=== PATIENT | male | born 1985 | race Caucasian/White ===

== ENCOUNTER 2021-08-04 17:26 | Emergency (ER) | payer MEDICAID, SELFPAY ==
[2021-08-04 17:26] VITALS: BP 129/62; PULSE 70; RESP 22; O2SAT 95
[2021-08-04 17:27] VITALS: BP 127/56; PULSE 90; RESP 16; TEMP 36.2; O2SAT 94; BMI 23.0
[2021-08-04 17:31] VITALS: BP 127/56; PULSE 76; RESP 22; O2SAT 92
--- NOTE | 2021-08-04 17:44 | INFXCTL.NOTE ---
lab called for critical lab result. called cleaner laboratory equipment to report trop 15.5
[2021-08-04 18:00] VITALS: BP 119/71; PULSE 89; RESP 24; O2SAT 95
[2021-08-04 18:14] LABS: Microscopic, Urine URINE MICROSCOPIC (MICROSCOPIC)
[2021-08-04 18:20] LABS: Basophils # 0.3 K/mm3 (0-0.2); Basophils % 2.3 % (0.1-2.0); Eosinophils # 0.3 K/mm3 (0.0-0.4); Eosinophils % 2.1 % (0.1-12.0); Hematocrit 54.3 % (42.0-52.0); Hemoglobin 16.5 g/dL (14.1-18.0); Lymphocytes # 3.4 K/mm3 (0.7-4.5); Lymphocytes % 23.7 % (10-50); Mean Corpuscular HGB Conc 30.4 g/dL (31.8-35.4); Mean Corpuscular Hemoglobin 29.3 pg (27.0-31.2); Mean Corpuscular Volume 96.1 fl (80-94); Mean Platelet Volume 9.7 fl (7.4-10.4); Monocytes # 0.6 K/mm3 (0.1-1.0); Monocytes % 4.1 % (1.7-9.3); Neutrophils # 9.7 K/mm3 (1.8-7.8); Neutrophils % 67.7 % (37.0-80.0); Platelet Count 344 K/mm3 (142-424); Red Blood Count 5.65 M/mm3 (4.60-6.20); Red Cell Distribution Width 13.4 % (11.5-17.5); White Blood Count 14.3 K/mm3 (4.8-10.8)
--- NOTE | 2021-08-04 18:20 | XR_ITS ---
PROCEDURE INFORMATION: Exam: XR Chest Exam date and time: 08/04/2021 6:20 PM Age: 35 years old Clinical indication: Other: Overdose TECHNIQUE: Imaging protocol: XR of the chest. Views: 1 view. COMPARISON: No relevant prior studies available. FINDINGS: Lungs: Unremarkable. No consolidation. Pleural spaces: Unremarkable. No pleural effusion. No pneumothorax. Heart/Mediastinum: Unremarkable. No cardiomegaly. Bones/joints: Unremarkable. IMPRESSION: No acute findings.
[2021-08-04 18:25] LABS: Chloride 100 mmol/L (98-107)
[2021-08-04 18:26] LABS: Potassium 4.4 mmoL/L (3.5-5.1); Sodium 139 mmol/L (136-145)
[2021-08-04 18:26] LABS: Appearance,Urine CLEAR (Clear); Bilirubin,Urine Negative (Negative); Blood, Urine 1+ (Negative); Color,Urine YELLOW (Yellow); Glucose,Urine (UA) 1+ (Negative); Ketones,Urine Negative (Negative); Leukocyte Esterase,Urine Negative (Negative); Nitrate,Urine Negative (Negative); PH,Urine 5.5 (5.0-8.5); Protein,Urine 2+ (Negative); Specific Gravity, Urine >= 1.030 (1.005-1.030); Urobilinogen,Urine 0.2 EU/dl (0.2)
[2021-08-04 18:29] LABS: Alanine Aminotransferase 129 U/L (12-78); Albumin Level 5.1 g/dl (3.5-5.0); Albumin/Globulin Ratio 1.8 (1.1-1.8); Alkaline Phosphatase 124 U/L (38-126); Anion Gap 35.4 mEq/L (5-15); Aspartate Amino Transferase 183 U/L (17-59); Bilirubin,Total 0.3 mg/dl (0.2-1.3); Blood Urea Nitrogen 10 mg/dl (9-20); Creatinine Clearance Estimated 98 mL/min (50-200); Estimated Glomerular Filt Rate 76 ml/min (>60); GFR (African American) 92 ML/MIN (>60); Globulin 2.8 g/dL (1.3-3.2); Glucose 248 mg/dl (74-100); Total Protein,Serum 7.9 g/dl (6.3-8.2)
[2021-08-04 18:30] LABS: Acetaminophen < 10 ug/ml (10-30); Carbon Dioxide 8 mmol/L (22.0-30.0); Ethyl Alcohol < 10 mg/dl (0-10)
[2021-08-04 18:36] LABS: Amorphous Sediment,Urine 1+ /lpf; WBC,Urine Occasional #/hpf (0-3)
[2021-08-04 18:37] VITALS: BP 123/86; PULSE 87; RESP 18
[2021-08-04 18:37] LABS: Amphetamine/Metha Screen,Urine Negative ng/ml (<1000); Benzodiazepines Screen,Urine Positive ng/ml (<200)
[2021-08-04 18:38] LABS: Barbiturates Screen,Urine Negative ng/ml (<200)
[2021-08-04 18:39] LABS: Cannabinoid Screen,Urine Positive ng/ml (<50); Methadone Screen,Urine Negative ng/ml (<300)
[2021-08-04 18:40] LABS: Cocaine Screen,Urine Negative ng/ml (<300); Opiate Screen,Urine Negative ng/ml (<300)
[2021-08-04 18:41] LABS: Phencyclidine Screen,Urine Negative ng/ml (<25)
[2021-08-04 18:52] LABS: Creatine Kinase 71 U/L (55-170)
[2021-08-04 18:59] LABS: ABG Base Excess -4.6 mmol/L (-2.4-2.3); ABG HCO3 21.2 mmhg (22.0-26.0); ABG Oxygen Saturation 95 % (90-100); ABG PCO2 40.4 mmhg (35.0-45.0); ABG PH 7.34 mmol/L (7.35-7.45); ABG TCO2 22.4 mmhg (23-27)
[2021-08-04 19:02] LABS: Allen's Test ACCEPTABLE; Oxygen ROOM AIR %; Source L RADIAL
--- NOTE | 2021-08-04 19:29 | HMH.EDGENADL ---
ED Disposition Condition on Discharge: Fair - Critical Care Critical Care Time: No <PeterstefBang - Last Filed: 08/04/21 20:03> <Evert Rubalcava - Last Filed: 08/05/21 08:22> Clinical Impression: Seizure Disposition: Home, Self-Care Instructions: DI for Altered Mental Status Referrals: Odin Steen [Primary Care Provider] - Attestation: On 08/04/21, the high probability of a clinically significant, sudden or life threatening deterioration of the following system(s) required my full and direct attention, intervention and personal management. The time I documented below is in addition to time spent performing reported procedures but includes the following listed in this critical care notation. Medical Decision Making - Georges Inquiry Pt receiving controlled substance: No - Lab Data Result diagrams: 08/04/21 17:30 08/04/21 17:30 - Radiology Data #1 Image(s): Chest Image Reviewed: Yes I have reviewed radiologist's interpretation <TriceBang - Last Filed: 08/04/21 20:03> - Lab Data Result diagrams: 08/04/21 17:30 08/04/21 17:30 <Evert Rubalcava - Last Filed: 08/05/21 08:22> Vital Signs: 08/04/21 17:26 08/04/21 17:27 08/04/21 17:31 Temperature 97.2 F L Temperature Source Rectal Pulse Rate 70 76 Pulse Rate [Right Radial] 90 Respiratory Rate 22 16 22 Blood Pressure 129/62 127/56 L Blood Pressure [Right Arm] 127/56 L Blood Pressure Mean [Right Arm] 79 Blood Pressure Source Automatic Cuff Automatic Cuff Blood Pressure Source [Right Arm] Automatic Cuff Blood Pressure Position Sitting Sitting Blood Pressure Position [Right Arm] Sitting 02 Sat by Pulse Oximetry 95 94 L 92 L Oxygen Delivery Method Room Air Room Air Room Air 08/04/21 18:00 08/04/21 18:37 08/05/21 00:21 Temperature 98.7 F Temperature Source Pulse Rate 89 87 81 Pulse Rate [Right Radial] Respiratory Rate 24 18 16 Blood Pressure 119/71 123/86 123/64 Blood Pressure [Right Arm] Blood Pressure Mean [Right Arm] Blood Pressure Source Automatic Cuff Automatic Cuff Blood Pressure Source [Right Arm] Blood Pressure Position Sitting Sitting Blood Pressure Position [Right Arm] 02 Sat by Pulse Oximetry 95 Oxygen Delivery Method Room Air Room Air - Lab Data Lab Results 08/04/21 17:30: WBC 14.3 H, RBC 5.65, Hgb 16.5, Hct 54.3 H, MCV 96.1 H, MCH 29.3, MCHC 30.4 L, RDW 13.4, Plt Count 344, MPV 9.7, Neut % (Auto) 67.7, Lymph % (Auto) 23.7, [place] % (Auto) 4.1, Eos % (Auto) 2.1, Baso % (Auto) 2.3 H, Neut # (Auto) 9.7 H, Lymph # (Auto) 3.4, [place] # (Auto) 0.6, Eos # (Auto) 0.3, Baso # (Auto) 0.3 H 08/04/21 17:30: Sodium 139, Potassium 4.4, Chloride 100, Carbon Dioxide 8 L*, Anion Gap 35.4 H, BUN 10, Creatinine 1.10, Estimated Creat Clear 98, Estimated GFR 76, Est GFR ( Amer) 92, Glucose 248 H, Calcium 10.0, Total Bilirubin 0.3, AST 183 H, ALT 129 H, Alkaline Phosphatase 124, Total Protein 7.9, Albumin 5.1 H, Globulin 2.8, Albumin/Globulin Ratio 1.8, Acetaminophen < 10 L 08/04/21 17:30: Lactate 13.0 H 08/04/21 17:30: Urine Opiates Screen Negative, Urine Methadone Screen Negative, Ur Barbituates Screen Negative, Ur Phencyclidine Scrn Negative, Ur Amphetamines Screen Negative, U Benzodiazepines Scrn Positive H, Urine Cocaine Screen Negative, U Marijuana (THC) Screen Positive H 08/04/21 17:30: Plasma/Serum Alcohol < 10 08/04/21 17:30: Total Creatine Kinase 71 08/04/21 17:30: Salicylates < 1.0 L 08/04/21 18:04: Urine Color Yellow, Urine Appearance Clear, Urine pH 5.5, Ur Specific [place] >= 1.030, Urine Protein 2+, Urine Glucose (UA) 1+, Urine Ketones Negative, Urine Blood 1+, Urine Nitrate Negative, Urine Bilirubin Negative, Urine Urobilinogen 0.2, Ur Leukocyte Esterase Negative, Urine RBC 5-10, Urine WBC Occasional, Amorphous Sediment 1+ 08/04/21 18:42: Specimen Source L radial, O2 % Room air, ABG pH 7.34 L, ABG pCO2 40.4, ABG pO2 79.0 L, ABG HCO3 21.2 L, ABG Total CO2 22.4 L, ABG O2 Saturation
--- NOTE | 2021-08-04 19:52 | CT_ITS ---
PROCEDURE INFORMATION: Exam: CT Head Without Contrast Exam date and time: 08/04/2021 7:52 PM Age: 35 years old Clinical indication: Other: Seizure headache; Additional info: Seizure, headache TECHNIQUE: Imaging protocol: Computed tomography of the head without contrast. Radiation optimization: All CT scans at this facility use at least one of these dose optimization techniques: automated exposure control; mA and/or kV adjustment per patient size (includes targeted exams where dose is matched to clinical indication); or iterative reconstruction. COMPARISON: No relevant prior studies available. FINDINGS: Brain: Normal. No hemorrhage. Unremarkable white matter. No mass effect. Cerebral ventricles: No ventriculomegaly. Paranasal sinuses: Visualized sinuses are unremarkable. No fluid levels. Mastoid air cells: Visualized mastoid air cells are well aerated. Bones/joints: Unremarkable. No acute fracture. Soft tissues: Unremarkable. IMPRESSION: No acute intracranial abnormality.
[2021-08-04 20:12] LABS: Salicylate < 1.0 mg/dL (2.0-20.0)
[2021-08-04 21:41] LABS: Reflex Lactic Add Lactic Reflex
[2021-08-04 21:56] LABS: Lactic Acid Follow Up (RFLX 1) 1.3 mmol/L (0.7-2.1)
[2021-08-05 00:21] VITALS: BP 123/64; PULSE 81; RESP 16; TEMP 37.1; O2SAT 98
[2021-08-07 19:07] LABS: Levetiracetam (Keppra) 9.7 ug/mL (10.0-40.0)
== END 2021-08-05 00:27 | disposition home or self-care (01) ==
PROVIDERS: Emergency Medicine; Emergency Provider Student in an Organized Health Care Education/Training Program; PCP Internal Medicine Endocrinology, Diabetes & Metabolism
DX: G40.909 Epilepsy, unspecified, not intractable, without status epilepticus (principal); F12.10 Cannabis abuse, uncomplicated; R51.9 Headache, unspecified; R73.9 Hyperglycemia, unspecified
CPT/HCPCS: 70450; 71045; 80053; 80168; 80177; 80305; 80329; 81001; 82550; 82803; 83605; 85025; 87040; 96365; 96366; 99283; J1953; J2310

== ENCOUNTER 2022-05-16 14:33 | Emergency (ER) | payer MEDICAID, SELFPAY ==
[2022-05-16 15:33] VITALS: BP 131/86; PULSE 76; RESP 19; TEMP 36.6; O2SAT 98; BMI 25.0
--- NOTE | 2022-05-16 15:45 | EXP.UTC ---
Discharge Plan Disposition Patient Disposition: Home, Self-Care Condition: Good Prescriptions Prescriptions: New acyclovir 800 mg tablet 800 mg PO 5XDAY 7 Days Qty: 35 0RF Activity Restrictions/Add. Instructions Additional Instructions/Restrictions: Take medications as prescribed Folow up with your Family Doctor if no improvement or any worsening of symptoms Return if needed Try to avoid the elderly and women small babies while having outbreak Straight to ER if any life threatening symptoms Clinical Impressions Clinical Impression: Shingles outbreak Qualifiers: Herpes zoster complications: without complications Qualified Code(s): B02.9 - Zoster without complications Instructions Patient Instructions: Shingles, DI for Shingles, Acyclovir Discharge ED Provider: Tiara Vazquez [facility] [place] HPI General Stated complaint: Back pain & itching Time Seen by Provider: 05/16/22 15:45 Description of Symptoms (Recalled from Triage Doc. by RN): Pt c/o painful rash on left side and around to his back that looks like possible shingles HEENT Symptoms (Recalled from RN notes): No Resp Symptoms (Recalled from RN notes): No Skin Symptoms (Recalled from RN notes): Yes MS Symptoms (Recalled from RN notes): No Functional Status (Recalled from RN notes): wnl History of Present Illness Provider Complaint: Patient states that about 4 days ago he had some pain in his middle back and then started breaking out in rash that has spread from middle back around his left side and still spreading states that he looked it up on the internet and thinks it may be shingles Related Data Previous Rx's Medication Instructions Recorded acyclovir 800 mg tablet 800 mg PO 5XDAY 7 days #35 tabs 05/16/22 Allergies Allergy/AdvReac Type Severity Reaction Status Date / Time No Known Allergies Allergy Verified 05/16/22 15:39 Worker's Comp Is this a Worker's Comp case?: No PFSH PFSH Social History Smoking Status: Unknown if ever smoked alcohol intake: never current occupational status: employed Travel in the last 8 weeks: None ROS Obtained: Yes All systems reviewed & no additional complaints except as documented and Yes Systems reviewed as appropriate & no additional complaints except as documented ENT Ears, Nose, Mouth, and Throat: Reports system reviewed and no additional complaints, except as documented and Reports as per HPI Cardiovascular Cardiovascular: Reports system reviewed and no additional complaints, except as documented and Reports as per HPI Integumentary/Breasts Skin/Breast: Reports system reviewed and no additional complaints, except as documented, Reports as per HPI and Reports other (blister like rash on back and left side) Physical Exam General General appearance: alert and in no apparent distress Respiratory Respiratory exam: Present normal lung sounds bilaterally and respiratory distress Cardiovascular Cardiovascular exam: Present regular rate, normal rhythm and normal heart sounds Back Exam Back 1 view image: 1. blister like rash noted on left side that comes around rib area onto from appears like that seen with shingles Neurological Exam Neurological exam: Present alert, oriented X3 and normal gait Skin Skin exam: Present other (blister like rash on back and left side appears like shingles) Medical Decision Making Georges Inquiry Pt receiving controlled substance: No Georges was queried for this patient: No Vital Signs: 05/16/22 15:33 Temperature 97.9 F Temperature Source Oral Pulse Rate [Right Brachial] 76 Respiratory Rate 19 Blood Pressure [Right Arm] 131/86 Blood Pressure Mean [Right Arm] 101 Blood Pressure Source [Right Arm] Automatic Cuff Blood Pressure Position [Right Arm] Sitting 02 Sat by Pulse Oximetry 98
[2022-05-16 16:16] VITALS: BP 131/86; PULSE 76; RESP 19; TEMP 36.6
== END 2022-05-16 16:17 | disposition home or self-care (01) ==
PROVIDERS: Emergency Provider Nurse Practitioner
DX: B02.9 Zoster without complications (principal)
CPT/HCPCS: 99212; G0463